=== PATIENT | female | born 1975 | race Caucasian/White ===

== ENCOUNTER 2019-11-04 12:46 | Emergency (ER) | payer OTHER ==
[~2019-11-04] VITALS: Ht 160 cm; Wt 89.8 kg
[~2019-11-04 12:46] MED LIST: AMBIEN 5 MG TABL5 M1 PO; CIPRO500 MG PO; EFFEXOR 5050 MG/1 T1 PO; MELATONIN3 M1 PO; NORCO 5-325 TA1 EACH PO; ONDANSETRON HCL4 M2 PO; PHENAZOPYRIDIN200 M2 PO; REMERON30 MG PO; TRAZODONE 150150 M1 PO; ZPAK PO; [UNRECOGNIZED DRUG - OTHER]
[2019-11-04] MEDS ORDERED: NAPROXEN DELAY500 M1 PO (12:57)
[2019-11-04 13:55] LABS: URINE BILIRUBIN NEGATIVE (Negative); URINE BLOOD 2+ (Negative); URINE CLARITY SL CLOUDY; URINE COLOR YELLOW; URINE GLUCOSE-RANDOM NEGATIVE (Negative); URINE KETONES NEGATIVE (Negative); URINE LEUKOCYTES-REFLEX TRACE (Negative); URINE NITRITE-REFLEX NEGATIVE (Negative); URINE PROTEIN NEGATIVE (Negative); URINE SPECIFIC GRAVITY 1.025 (1.005-1.030)
[2019-11-04 14:03] LABS: CASTS None Seen /LPF (None Seen); CRYSTALS None Seen /LPF (None Seen); SQUAMOUS 0-3 Few /LPF (0-3); URINE RBC 0-2 Rare /HPF (0-2); URINE WBC-REFLEX 6-15 Few /HPF (0-5)
[2019-11-04 14:24] VITALS: BP 124/78
[2019-11-04] MEDS ORDERED: PYRIDIUM100 M1 PO (14:37)
[2019-11-04] MEDS ORDERED: MACROBID 100 M100 M2 PO (14:37)
== END 2019-11-04 14:47 | disposition home or self-care (01) ==
LOC: M.ERS 12:46
PROVIDERS: Nurse Practitioner Family
DX: N39.0 Urinary tract infection, site not specified (principal); Z88.0 Allergy status to penicillin; Z88.5 Allergy status to narcotic agent; Z98.51 Tubal ligation status

== ENCOUNTER 2021-03-18 08:02 | Emergency (ER) | payer OTHER ==
[~2021-03-18] VITALS: Ht 160 cm; Wt 97.5 kg
[~2021-03-18 08:02] MED LIST changes: +MACROBID 100 M100 M2 PO; +NAPROXEN DELAY500 M1 PO; +PYRIDIUM100 M1 PO
[2021-03-18] MEDS ORDERED: SUPER THERAVIT1 EACH PO (08:18)
[2021-03-18] MEDS ORDERED: ESTROVEN CMPLT M4 MG PO (08:18)
[2021-03-18 08:26] LABS: URINE BILIRUBIN NEGATIVE (Negative); URINE BLOOD NEGATIVE (Negative); URINE CLARITY CLEAR; URINE COLOR YELLOW; URINE GLUCOSE-RANDOM NEGATIVE (Negative); URINE KETONES NEGATIVE (Negative); URINE LEUKOCYTES 1+ (Negative); URINE NITRITE NEGATIVE (Negative); URINE PROTEIN NEGATIVE (Negative); URINE UROBILINOGEN 0.2 E.U./dl (0.2-1.0)
[2021-03-18 08:39] LABS: BACTERIA 1-9 Few /HPF (None Seen); CASTS None Seen /LPF (None Seen); CRYSTALS None Seen /LPF (None Seen); MUCUS None Seen strn/LPF (None Seen); SQUAMOUS 4-10 Moderate /LPF (0-3); URINE RBC 0-2 Rare /HPF (0-2); URINE WBC 0-5 Rare /HPF (0-5)
[2021-03-18 09:06] LABS: HEMATOCRIT 42.3 % (37.0-47.0); HEMOGLOBIN 14.2 gm/dL (12.0-15.0); MCH 30.5 pg (26.0-34.0); MCHC 33.6 g/dL (28.0-37.0); MCV 90.8 fL (80.0-100.0); RBC 4.66 mil/uL (4.20-5.00); RDW-CV 13.6 % (10.5-14.5); WBC 6.6 thou/uL (4.0-11.0)
[2021-03-18 09:15] LABS: CALCIUM 8.6 mg/dL (8.5-10.1); CREATININE 0.8 mg/dL (0.6-1.3); POTASSIUM 3.6 mmol/L (3.5-5.1)
[2021-03-18 09:20] LABS: ALBUMIN 3.5 g/dL (3.4-5.0); TOTAL BILIRUBIN 0.5 mg/dL (<0.1-1.0); TOTAL PROTEIN 7.4 g/dL (6.4-8.2)
[2021-03-18] MEDS ORDERED: KEFLEX750 MG PO (09:46)
[2021-03-18] MEDS ORDERED: PYRIDIUM200 MG PO (09:46)
[2021-03-18 09:55] VITALS: BP 124/76
== END 2021-03-18 09:57 | disposition home or self-care (01) ==
LOC: M.ERS 08:02
PROVIDERS: Emergency Medicine
DX: R10.32 Left lower quadrant pain (principal); R30.0 Dysuria; Z88.0 Allergy status to penicillin; Z88.5 Allergy status to narcotic agent

== ENCOUNTER 2021-04-24 15:45 | Emergency (ER) | payer OTHER ==
[~2021-04-24] VITALS: Ht 160 cm; Wt 99.8 kg
[~2021-04-24 15:45] MED LIST changes: +ESTROVEN CMPLT M4 MG PO; +KEFLEX750 MG PO; +PYRIDIUM200 MG PO; +SUPER THERAVIT1 EACH PO
[2021-04-24] MEDS ORDERED: IBUPROFEN200 M1 PO (16:03)
[2021-04-24 16:23] LABS: URINE BILIRUBIN NEGATIVE (Negative); URINE BLOOD 3+ (Negative); URINE CLARITY SL CLOUDY; URINE COLOR RED; URINE GLUCOSE-RANDOM NEGATIVE (Negative); URINE KETONES NEGATIVE (Negative); URINE LEUKOCYTES-REFLEX NEGATIVE (Negative); URINE NITRITE-REFLEX NEGATIVE (Negative); URINE PROTEIN 1+ (Negative)
[2021-04-24 16:31] LABS: BACTERIA-REFLEX 1-9 Few /HPF (None Seen); CASTS None Seen /LPF (None Seen); SQUAMOUS 4-10 Moderate /LPF (0-3); URINE RBC >20 Many /HPF (0-2); URINE WBC-REFLEX 0-5 Rare /HPF (0-5)
[2021-04-24 16:32] LABS: CRYSTALS None Seen /LPF (None Seen)
[2021-04-24 17:09] LABS: ABSOLUTE BASOPHILS 0.1 thou/uL (0.0-0.2); ABSOLUTE EOSINOPHILS 0.6 thou/uL (0.0-0.7); ABSOLUTE LYMPHOCYTES 2.9 thou/uL (0.8-5.3); ABSOLUTE MONOCYTES 0.8 thou/uL (0.0-1.2); BASOPHILS 0.8 %; HEMATOCRIT 41.2 % (37.0-47.0); HEMOGLOBIN 14.3 gm/dL (12.0-15.0); LYMPHOCYTES 31.2 %; MCH 31.4 pg (26.0-34.0); MCHC 34.7 g/dL (28.0-37.0); MCV 90.6 fL (80.0-100.0); MONOCYTES 8.9 %; MPV 7.6 fl. (7.2-11.1); NUCLEATED RBCS 0 /100WBC; PLATELET COUNT* 308 thou/uL (150-400); POLYS 53.1 %; RBC 4.54 mil/uL (4.20-5.00); WBC 9.4 thou/uL (4.0-11.0)
[2021-04-24 17:16] LABS: CALCIUM 9.2 mg/dL (8.5-10.1); CREATININE 0.7 mg/dL (0.6-1.3); POTASSIUM 4.1 mmol/L (3.5-5.1)
[2021-04-24] MEDS ORDERED: PROVERA10 MG PO (17:44)
[2021-04-24 18:13] VITALS: BP 124/98
== END 2021-04-24 18:13 | disposition home or self-care (01) ==
LOC: M.ERS 15:45
PROVIDERS: Nurse Practitioner Psychiatric/Mental Health
DX: N92.4 Excessive bleeding in the premenopausal period (principal); Z88.5 Allergy status to narcotic agent; Z88.0 Allergy status to penicillin; Z79.899 Other long term (current) drug therapy; Z98.51 Tubal ligation status